=== PATIENT | male | born 1955 | race Caucasian/White ===

== ENCOUNTER 2022-09-18 05:24 | Inpatient (IN) | payer OTHER ==
[~2022-09-18] VITALS: Ht 182.9 cm; Wt 94.1 kg
[~2022-09-18 05:24] MED LIST: AMLO2.5T96 PO; ATOR10TA PO; LOSA-382 PO
[2022-09-18] MEDS ORDERED: RINGERS SOLUTION,LACTATED 1,000 ML IV ONE ×3 (05:34→09:05)
[2022-09-18] MEDS ORDERED: BUPIVACAINE HCL/PF 0.5% 30 ML VIAL ONE (05:56)
[2022-09-18] MEDS ORDERED: SODIUM CHLORIDE 0.9% 20 ML ONE (05:56)
[2022-09-18] MEDS ORDERED: VANCOMYCIN HCL 1 GM/VIAL ONE (05:56)
[2022-09-18] MEDS ORDERED: SODIUM CHLORIDE 0.9% 100 ML ONE (05:57)
[2022-09-18 06:00] LABS: COVID AG,FIA SOURCE NASOPHARYNGEAL
[2022-09-18] MEDS ORDERED: BUPIVACAINE LIPOSOME/PF 1.3%-13.3MG/ML SUSPENSION 20 ML VIAL INJ ONE (06:00)
[2022-09-18 06:03] LABS: BASOPHILS % (AUTO) 0.6 % (0.0-2.0); EOSINOPHILS % (AUTO) 4.3 % (1.0-6.0); HEMATOCRIT 43.7 % (41-53); HEMOGLOBIN 14.7 g/dL (13.5-17.5); LYMPHOCYTES % (AUTO) 34.1 % (22.0-44.0); MEAN CORPUSCULAR HEMOGLOBIN 30.7 pg (26.0-34.0); MEAN CORPUSCULAR HGB CONC 33.8 G/dL (31.0-37.0); MEAN CORPUSCULAR VOLUME 91 fL (80-100); MONOCYTES # (AUTO) 0.7 K/uL (0.1-1.0); NEUTROPHILS # (AUTO) 2.8 K/uL (1.8-7.7); PLATELET COUNT (AUTO) 181 K/uL (150-450); RED BLOOD CELL COUNT(AUTO) 4.81 MIL/uL (4.50-5.90); RED CELL DISTRIBUTION WIDTH 14.2 % (11.5-14.5)
[2022-09-18 06:11] LABS: CALCIUM, TOTAL 8.7 mg/dL (8.8-10.5); CREATININE 1.23 mg/dL (0.60-1.30); POTASSIUM 4.3 mmol/L (3.5-5.1)
[2022-09-18 06:15] LABS: PROTHROMBIN TIME 10.3 SEC (9.4-11.6)
[2022-09-18] MEDS ORDERED: ETHYL ALCOHOL 62% ANTISEPTIC NASAL SANITIZER 0.6 ML AMPUL NASAL ONE (06:15)
[2022-09-18 06:17] LABS: ALBUMIN 3.8 g/dL (3.4-5.0); BILIRUBIN,TOTAL 0.6 mg/dL (0.1-1.0); TOTAL PROTEIN, SERUM 6.6 g/dL (6.4-8.2)
[2022-09-18] MEDS ORDERED: MEPERIDINE-PF 25 MG/ML VIAL IVP PRN (08:15)
[2022-09-18] MEDS ORDERED: ONDANSETRON HCL 4 MG/2 ML VIAL IVP PRN ×2 (08:30→13:15)
[2022-09-18] MEDS ORDERED: ZOLPIDEM TARTRATE 5 MG TABLET PO PRN ×2 (08:30→13:15)
[2022-09-18] MEDS ORDERED: OxyCODONE HCL 5 MG IR TABLET PO PRN (08:30)
[2022-09-18] MEDS ORDERED: THROMBIN, BOVINE 20000 UNITS/VIAL POWDER TP ONE (09:05)
[2022-09-18] MEDS ORDERED: HEPARIN SODIUM,PORCINE 5,000 UNITS/ML VIAL ONE (10:25)
[2022-09-18] MEDS ORDERED: FentaNYL CITRATE PF 100 MCG/2 ML VIAL ONE (12:01)
[2022-09-18] MEDS: FentaNYL CITRATE PF 100 MCG/2 ML VIAL IVP PRN ×2 (12:02→12:12)
[2022-09-18] MEDS ORDERED: HYDROmorphone HCL 2 MG/ML SYRINGE ONE (12:18)
[2022-09-18] MEDS: HYDROmorphone HCL 2 MG/ML SYRINGE IVP PRN ×6 (12:19→20:48)
[2022-09-18] MEDS ORDERED: ACETAMINOPHEN 1000 MG/ISO-OSM 100 ML IV ONE (13:02)
[2022-09-18] MEDS: ACETAMINOPHEN 1000 MG/ISO-OSM 100 ML IV SCH ×2 (13:04→18:40)
[2022-09-18] MEDS ORDERED: MORPHINE SULFATE 2 MG/ML SYRINGE IVP PRN (13:15)
[2022-09-18] MEDS ORDERED: HYDROCODONE/ACETAMINOPHEN 5-325 MG TABLET PO PRN (13:15)
[2022-09-18] MEDS ORDERED: MAGNESIUM HYDROXIDE SUSPENSION 30 ML UDCUP PO PRN (13:15)
[2022-09-18] MEDS ORDERED: BISACODYL 10 MG RECTAL RECTAL SUPPOSITORY PR PRN (13:15)
[2022-09-18] MEDS ORDERED: ACETAMINOPHEN 325 MG TABLET PO PRN (13:15)
[2022-09-18 13:47] VITALS: BP 127/100
[2022-09-18] MEDS ORDERED: HEPARIN SODIUM,PORCINE 5,000 UNITS/ML VIAL SQ SCH (16:00)
[2022-09-18] MEDS ORDERED: SODIUM CHLORIDE 0.9% 500 ML IV ONE (16:45)
[2022-09-18] MEDS ORDERED: OxyCODONE HCL 10 MG IR TABLET PO PRN (20:00)
[2022-09-18] MEDS: OXYGEN THERAPY IH SCH (20:00)
[2022-09-18] MEDS: DOCUSATE SODIUM 100 MG CAPSULE PO SCH (20:06)
[2022-09-18 20:24] VITALS: BP 124/74
[2022-09-19] MEDS: HYDROmorphone HCL 2 MG/ML SYRINGE IVP PRN ×4 (00:19→11:25)
[2022-09-19] MEDS: ACETAMINOPHEN 1000 MG/ISO-OSM 100 ML IV SCH ×2 (01:21→05:59)
[2022-09-19 04:00] VITALS: BP 120/77
[2022-09-19] MEDS ORDERED: RINGERS SOLUTION,LACTATED 1,000 ML IV ONE ×2 (05:58→06:00)
[2022-09-19] MEDS ORDERED: VANCOMYCIN HCL 1 GM/VIAL ONE (06:00)
[2022-09-19] MEDS ORDERED: BUPIVACAINE HCL/PF 0.5% 30 ML VIAL ONE (06:36)
[2022-09-19] MEDS ORDERED: SODIUM CHLORIDE 0.9% 100 ML ONE (06:36)
[2022-09-19] MEDS ORDERED: MIDAZOLAM HCL 2 MG/2 ML VIAL IVP ONE (06:44)
[2022-09-19] MEDS ORDERED: ONDANSETRON HCL 4 MG/2 ML VIAL IVP ONE ×2 (06:44→12:00)
[2022-09-19] MEDS ORDERED: PROPOFOL 1% 20 ML VIAL IVP ONE ×2 (06:44→12:00)
[2022-09-19] MEDS ORDERED: LIDOCAINE/PF 2% 5 ML VIAL IM ONE ×2 (06:44→12:00)
[2022-09-19] MEDS ORDERED: DEXAMETHASONE SOD PHOS 4 MG/ML VIAL IVP ONE ×2 (06:44→12:00)
[2022-09-19] MEDS ORDERED: FentaNYL CITRATE PF 100 MCG/2 ML VIAL IVP ONE (06:44)
[2022-09-19] MEDS ORDERED: 0.9% SODIUM CHLORIDE 10 ML VIAL IVP ONE (06:44)
[2022-09-19] MEDS ORDERED: KETOROLAC TROMETHAMINE 60 MG/2 ML VIAL IM ONE ×2 (06:44→12:00)
[2022-09-19] MEDS ORDERED: EPHEDrine SULFATE 50 MG/ML VIAL IM ONE ×2 (06:44→12:00)
[2022-09-19] MEDS ORDERED: KETAMINE HCL 50 MG/ML 10 ML VIAL IVP ONE (06:44)
[2022-09-19] MEDS ORDERED: HYDROmorphone HCL 2 MG/ML SYRINGE IVP ONE ×2 (06:44→11:00)
[2022-09-19] MEDS ORDERED: ROCURONIUM BROMIDE 10 MG/ML 5 ML VIAL IVP ONE ×2 (06:44→12:00)
[2022-09-19] MEDS ORDERED: ACETAMINOPHEN 325 MG TABLET PO PRN (08:00)
[2022-09-19] MEDS ORDERED: FentaNYL CITRATE PF 100 MCG/2 ML VIAL ONE (10:43)
[2022-09-19] MEDS ORDERED: HYDROmorphone HCL 2 MG/ML SYRINGE ONE (10:44)
[2022-09-19] MEDS: FentaNYL CITRATE PF 100 MCG/2 ML VIAL IVP PRN ×2 (10:56→11:14)
[2022-09-19] MEDS ORDERED: MEPERIDINE-PF 25 MG/ML VIAL IVP PRN (11:00)
[2022-09-19 12:00] VITALS: BP 141/103
[2022-09-19] MEDS ORDERED: 0.9% SODIUM CHLORIDE 10 ML SYRINGE IVP ONE (12:00)
[2022-09-19] MEDS: ATORVASTATIN CALCIUM 10 MG TABLET PO SCH (13:09)
[2022-09-19] MEDS: AmLODIPine BESYLATE 2.5 MG TABLET PO SCH (13:09)
[2022-09-19] MEDS: LOSARTAN POTASSIUM 50 MG TABLET PO SCH (13:09)
[2022-09-19] MEDS: PANTOPRAZOLE SODIUM 40 MG DR TABLET PO SCH (13:10)
[2022-09-19] MEDS: DOCUSATE SODIUM 100 MG CAPSULE PO SCH ×2 (13:10→20:46)
[2022-09-19] MEDS: OxyCODONE HCL/ACETAMINOPHEN 10-325 MG TABLET PO PRN ×2 (15:08→19:37)
[2022-09-19 15:34] VITALS: BP 124/79
[2022-09-19 19:35] VITALS: BP 100/63
[2022-09-19] MEDS: OXYGEN THERAPY IH SCH ×2 (20:00)
[2022-09-19] MEDS: GABAPENTIN 300 MG CAPSULE PO SCH (20:45)
[2022-09-19] MEDS: CELECOXIB 100 MG CAPSULE PO SCH (20:45)
[2022-09-19] MEDS: CYCLOBENZAPRINE HCL 10 MG TABLET PO PRN (20:46)
[2022-09-20 00:15] VITALS: BP 108/59
[2022-09-20] MEDS: OxyCODONE HCL/ACETAMINOPHEN 10-325 MG TABLET PO PRN ×6 (00:17→22:41)
[2022-09-20 04:30] VITALS: BP 99/64
[2022-09-20] MEDS ORDERED: HYDROmorphone HCL 2 MG/ML SYRINGE IVP ONE (07:23)
[2022-09-20] MEDS ORDERED: KETAMINE HCL 50 MG/ML 10 ML VIAL IVP ONE (07:23)
[2022-09-20] MEDS ORDERED: MIDAZOLAM HCL 2 MG/2 ML VIAL IVP ONE (07:23)
[2022-09-20] MEDS ORDERED: FentaNYL CITRATE PF 100 MCG/2 ML VIAL IVP ONE (07:23)
[2022-09-20] MEDS: OXYGEN THERAPY IH SCH ×2 (08:00→20:00)
[2022-09-20] MEDS: LOSARTAN POTASSIUM 50 MG TABLET PO SCH (08:17)
[2022-09-20] MEDS: AmLODIPine BESYLATE 2.5 MG TABLET PO SCH (08:18)
[2022-09-20] MEDS: ATORVASTATIN CALCIUM 10 MG TABLET PO SCH (08:18)
[2022-09-20] MEDS: DOCUSATE SODIUM 100 MG CAPSULE PO SCH ×2 (08:18→20:09)
[2022-09-20] MEDS: PANTOPRAZOLE SODIUM 40 MG DR TABLET PO SCH (08:18)
[2022-09-20] MEDS: CYCLOBENZAPRINE HCL 10 MG TABLET PO PRN ×2 (08:21→20:10)
[2022-09-20 08:25] VITALS: BP 115/74
[2022-09-20 15:36] VITALS: BP 110/74
[2022-09-20 20:04] VITALS: BP 110/66
[2022-09-20] MEDS: CELECOXIB 100 MG CAPSULE PO SCH (20:10)
[2022-09-20] MEDS: GABAPENTIN 300 MG CAPSULE PO SCH (20:10)
[2022-09-21] MEDS: OxyCODONE HCL/ACETAMINOPHEN 10-325 MG TABLET PO PRN ×3 (02:36→13:19)
[2022-09-21 05:01] VITALS: BP 116/68
[2022-09-21] MEDS: OXYGEN THERAPY IH SCH (08:00)
[2022-09-21 08:11] VITALS: BP 104/72
[2022-09-21] MEDS: CYCLOBENZAPRINE HCL 10 MG TABLET PO PRN (09:45)
[2022-09-21] MEDS: LOSARTAN POTASSIUM 50 MG TABLET PO SCH (09:45)
[2022-09-21] MEDS: AmLODIPine BESYLATE 2.5 MG TABLET PO SCH (09:45)
[2022-09-21] MEDS: PANTOPRAZOLE SODIUM 40 MG DR TABLET PO SCH (09:45)
[2022-09-21] MEDS: ATORVASTATIN CALCIUM 10 MG TABLET PO SCH (09:46)
[2022-09-21] MEDS: DOCUSATE SODIUM 100 MG CAPSULE PO SCH (09:46)
== END 2022-09-21 15:20 | disposition home or self-care (01) | DRG 455 ==
LOC: 6N 05:24
PROVIDERS: ADMIT Neurological Surgery; ATTEND Neurological Surgery
PROC: 0SB20ZZ Excision of Lumbar Vertebral Disc, Open Approach (ICD-10-PCS; 2022-09-18)
PROC: 01NB0ZZ Release Lumbar Nerve, Open Approach (ICD-10-PCS; 2022-09-18)
PROC: 4A11X4G Monitoring of Peripheral Nervous Electrical Activity, Intraoperative, External Approach (ICD-10-PCS; 2022-09-18)
PROC: 0SG00A0 Fusion of Lumbar Vertebral Joint with Interbody Fusion Device, Anterior Approach, Anterior Column, Open Approach (ICD-10-PCS; principal; 2022-09-18 07:25)
PROC: 0SG0071 Fusion of Lumbar Vertebral Joint with Autologous Tissue Substitute, Posterior Approach, Posterior Column, Open Approach (ICD-10-PCS; 2022-09-19)
PROC: 0SB20ZZ Excision of Lumbar Vertebral Disc, Open Approach (ICD-10-PCS; 2022-09-19)
PROC: 4A11X4G Monitoring of Peripheral Nervous Electrical Activity, Intraoperative, External Approach (ICD-10-PCS; 2022-09-19)
PROC: 3E0U0GB Introduction of Recombinant Bone Morphogenetic Protein into Joints, Open Approach (ICD-10-PCS; 2022-09-19)
DX: M48.061 Spinal stenosis, lumbar region without neurogenic claudication (principal); I10 Essential (primary) hypertension; E78.5 Hyperlipidemia, unspecified; Z20.822 Contact with and (suspected) exposure to COVID-19; M51.16 Intervertebral disc disorders with radiculopathy, lumbar region; Z79.899 Other long term (current) drug therapy
CPT/HCPCS: 71046; 72131; 80053; 85025; 85610; 85730; 87081; 93005; 97110; 97116; 97162; 97166; 97530; 97535; C9290; G0238; J0131; J0690; J1100; J1170; J1644; J1885; J2250; J2405; J2704; J3010; J3370; J3490; J7040; J7050; J7120; 36415-L1; 36415-TC